=== PATIENT | male | born 1985 | race Caucasian/White ===

== ENCOUNTER → 2021-01-09 15:57 | Outpatient (CLI) | payer OTHER, SELFPAY ==
--- NOTE | ~2021-01-09 | XR_ITS ---
EXAMINATION: XR cervical spine 4-5V DATE: 01/09/2021 16:16 INDICATION: Chronic neck pain. TECHNIQUE: 5 views of cervical spine were obtained. COMPARISON: None. FINDINGS: There is 6 degrees levocurvature of cervical spine. Vertebral body heights and intervertebr al disc heights are normal. At C7-T1, there is mild facet joint osteoarthritis. No central canal sten osis or prevertebral soft tissue swelling. IMPRESSION: 1. Mild facet joint osteoarthritis at C7-T1. Reviewed, dictated and finalized at location A.
--- NOTE | ~2021-01-09 | XR_ITS ---
EXAMINATION: XR thoracic spine 3V DATE: 01/09/2021 16:16 INDICATION: Chronic back pain. TECHNIQUE: 3 views of thoracic spine were obtained. COMPARISON: None. FINDINGS: Bone alignment is normal. Vertebral body heights and intervertebral disc heights are normal . IMPRESSION: 1. Normal thoracic spine. Reviewed, dictated and finalized at location A. IMPRESSION: 1. Normal thoracic spine.
--- NOTE | ~2021-01-09 | XR_ITS ---
EXAMINATION: XR lumbar spine 2-3V DATE: 01/09/2021 16:16 INDICATION: Chronic low back pain. TECHNIQUE: 3 views of lumbar spine were obtained. COMPARISON: None. FINDINGS: Bone alignment is normal. Vertebral body heights are normal. There is severely decreased di sc height at L5-S1 with endplate remodeling. The facet joints are unremarkable. IMPRESSION: 1. Severe degenerative disc disease at L5-S1. Reviewed, dictated and finalized at location A.
== END ==
PROVIDERS: PCP Registered Nurse Pain Management; Visit Provider Registered Nurse Pain Management
DX: M51.37 Other intervertebral disc degeneration, lumbosacral region (principal); M54.2 Cervicalgia
CPT/HCPCS: 72050; 72072; 72100

== ENCOUNTER 2022-11-18 13:07 | Outpatient (CLI) | payer OTHER, SELFPAY ==
--- NOTE | ~2022-11-18 | XR_ITS ---
EXAM: XR ankle LT 2V DATE: 11/18/2022 13:19 HISTORY: ROLLED ANKLE YESTERDAY LATERAL SIDE PAIN AND SWELLING . COMPARISON: None available. FINDINGS: Normal mineralization. Irregular, smoothly marginated exostosis or osteophyte lateral to t he midfoot/proximal forefoot, seen only in the frontal view No definite fracture or dislocation. No l ytic or blastic lesion. Joint spaces are maintained. No erosion or periosteal change. Lateral soft ti ssue swelling. IMPRESSION: No acute osseous finding in the ankle. Prominent exostosis or osteophyte seen in the fron jeane view of uncertain clinical significance, consider dedicated radiographs of the foot for further e valuation. Reviewed, dictated and finalized at location K. IMPRESSION: No acute osseous finding in the ankle. Prominent exostosis or osteo phyte seen in the frontal view of uncertain clinical significance, consider ded icated radiographs of the foot for further evaluation.
== END 2022-11-18 13:08 ==
LOC: GOSHIMG 13:11
PROVIDERS: PCP Emergency Medicine; Visit Provider Emergency Medicine
DX: M25.572 Pain in left ankle and joints of left foot (principal)
CPT/HCPCS: 73600